=== PATIENT | male | born 1995 | race Hispanic/Latino ===

== ENCOUNTER 2021-11-15 00:41 | Observation (INO) | payer SELFPAY ==
[2021-11-15] MEDS ORDERED: hydrALAZINE 20 MG/ML VIAL SLOW IVP PRN (01:40)
[2021-11-15] MEDS ORDERED: Dextrose 50% Abboject 50 ML SYRINGE SLOW IVP PRN (01:40)
[2021-11-15] MEDS ORDERED: Ondansetron PF 4 MG/2 ML Vial IVP PRN (01:40)
[2021-11-15] MEDS ORDERED: Dextrose 5% in Water 1,000 ML IV PRN (01:40)
[2021-11-15] MEDS ORDERED: Cyclobenzaprine 10 MG TAB PO PRN (01:43)
[2021-11-15] MEDS ORDERED: Ibuprofen 200 MG TAB PO PRN (01:43)
[2021-11-15] MEDS ORDERED: traMADol HCl 50 MG TAB PO PRN (01:43)
[2021-11-15 04:01] VITALS: BMI 30.2
[2021-11-15] MEDS: traMADol HCl 50 MG TAB PO SCH ×2 (05:03→11:26)
[2021-11-15] MEDS: Acetaminophen 500 MG TAB PO SCH ×2 (05:04→11:25)
[2021-11-15] MEDS ORDERED: Oxazepam 10 MG CAP PO SCH (06:00)
[2021-11-15 06:30] LABS: #Eosinphils 0.1 thou/uL (0.0-0.7); #Lymphocytes 1.8 thou/uL (1.20-3.40); #Monocytes 0.9 thou/uL (0.11-0.59); #Neutrophils 6.1 thou/uL (1.40-6.50); %Basophils 0.2 % (0.0-1.0); %Eosinophils 1.3 % (0.0-10.0); %Lymphocytes 20.6 % (21.0-51.0); %Monocytes 9.8 % (0.0-10.0); %Neutrophils 68.2 % (42.0-75.0); Hemoglobin 14.4 g/dL (14.0-18.0); Mean Corpuscular HGB CONC 34.3 g/dL (32.0-36.0); Mean Corpuscular Hemoglobin 33.4 pg (27.0-31.0); Mean Corpuscular Volume 97.4 fL (78.0-98.0); Mean Platelet Volume 6.8 fL (7.4-10.4); Platelet Count 203 thou/uL (130-400); RBC Distribution Width 11.5 % (11.5-14.5); White Blood Cell (WBC) Count 8.9 thou/uL (4.8-10.8)
[2021-11-15 06:50] LABS: Anion Gap 12 mmol/L (10-20); BUN (Urea Nitrogen) 12 mg/dL (8.9-20.6); Calc. Creatinine Clearance 177 mL/min (70-130); Calcium 8.8 mg/dL (7.8-10.44); Carbon Dioxide 24 mmol/L (22-29); Chloride 103 mmol/L (98-107); Glucose 141 mg/dL (70-105); Potassium 3.7 mmol/L (3.5-5.1); Sodium 135 mmol/L (136-145)
[2021-11-15] MEDS ORDERED: Multivitamin W/ Minerals 1 TAB PO SCH (09:00)
[2021-11-15] MEDS ORDERED: Polyethylene Glycol 3350 17 GM Packet PO SCH (09:00)
[2021-11-15] MEDS ORDERED: Thiamine 100 MG TAB PO SCH (09:00)
[2021-11-15] MEDS ORDERED: Senokot S 8.6-50 MG TAB PO SCH (09:00)
[2021-11-15] MEDS ORDERED: Folic Acid 1 MG TAB PO SCH (09:00)
[2021-11-15 11:53] VITALS: BP 161/97; TEMP 98.2
[2021-11-15 12:21] LABS: SARS-CoV-2 PCR by NAA Not Detected (NotDetected)
== END 2021-11-15 13:20 | disposition home or self-care (01) ==
LOC: ERS 00:41 → SJJU 01:40
PROVIDERS: ADMIT Surgery; ATTEND Surgery
DX: S20.219A Contusion of unspecified front wall of thorax, initial encounter (principal); R10.11 Right upper quadrant pain; F19.10 Other psychoactive substance abuse, uncomplicated; F10.129 Alcohol abuse with intoxication, unspecified; R74.01 Elevation of levels of liver transaminase levels; Z20.822 Contact with and (suspected) exposure to COVID-19; V89.2XXA Person injured in unspecified motor-vehicle accident, traffic, initial encounter
CPT/HCPCS: 36415; 80048; 83735; 85025; 99285; G0378; G0390; U0003; U0005